=== PATIENT | female | born 1975 | race Caucasian/White ===

== ENCOUNTER 2018-06-21 17:35 | Emergency (ER) | payer OTHER ==
[2018-06-21 17:54] VITALS: RESP 18
--- NOTE | 2018-06-21 18:03 | ED ---
General Adult HPI - General Chief complaint: Vaginal Bleeding Stated complaint: eptopic Time Seen by Provider: 06/21/18 17:48 Source: patient, EMS, RN notes reviewed, old records reviewed (From [facility]) Mode of arrival: EMS Limitations: no limitations - History of Present Illness Initial comments: Patient is a pleasant 42-year-old female presenting to the emergency Department as a transfer from [facility]. Patient was transferred secondary to concern for ectopic . Patient is 2 para 1. Last was 9 years ago. was premature. Patient's last menstrual cycle was either 1 or 2 months ago. Patient had small amount of bleeding 1 month ago however her menstrual cycle has been irregular. Patient did have some spotting start 6 days ago. Patient took a test that was positive for days ago. This morning patient had increased bleeding and discomfort in the lower pelvic/lower back region. Patient states discomfort has improved is only mild at this time. Patient was seen there and had ultrasound done concerning for possible ectopic and was transferred here secondary to no POULTRY PATHOLOGIST available at her facility. HCG was reported at 11, 000. Patient states bleeding has slowed down and is only spotting at this time. Patient did have pelvic exam done there. - Related Data Home Medications Medication Instructions Recorded Confirmed Ergocalciferol (Vitamin D2) 50,000 unit PO TH 06/21/18 06/21/18 [Vitamin D2] diphenhydrAMINE [Benadryl] 100 mg PO HS 06/21/18 06/21/18 traMADol HCL [Ultram] 50 mg PO DAILY 06/21/18 06/21/18 Allergies Allergy/AdvReac Type Severity Reaction Status Date / Time No Known Allergies Allergy Verified 06/21/18 18:21 Review of Systems ROS Statement: Those systems with pertinent positive or pertinent negative responses have been documented in the HPI. ROS Other: All systems not noted in ROS Statement are negative. Constitutional: Denies: fever Eyes: Denies: eye pain ENT: Denies: ear pain Respiratory: Denies: cough Cardiovascular: Denies: chest pain Endocrine: Denies: fatigue Gastrointestinal: Denies: vomiting Genitourinary: Reports: abnormal menses. Denies: dysuria Musculoskeletal: Denies: arthralgia Skin: Denies: rash Neurological: Denies: weakness Past Medical History Past Medical History: Hypertension, Renal Disease Additional Past Medical History / Comment(s): stage 3 kidney disease History of Any Multi-Drug Resistant Organisms: None Reported Past Surgical History: Section Past Psychological History: No Psychological Hx Reported Smoking Status: Current every day smoker Past Alcohol Use History: None Reported Past Drug Use History: Marijuana General Exam Limitations: no limitations General appearance: alert, in no apparent distress Head exam: Present: atraumatic Eye exam: Present: normal appearance, PERRL ENT exam: Present: normal oropharynx Neck exam: Present: normal inspection Respiratory exam: Present: normal lung sounds bilaterally Cardiovascular Exam: Present: regular rate, normal rhythm GI/Abdominal exam: Present: soft. Absent: distended, tenderness Extremities exam: Present: normal inspection Neurological exam: Present: alert Psychiatric exam: Present: normal affect, normal mood Skin exam: Present: normal color Course Vital Signs 06/21/18 17:45 Temperature 97.7 F Pulse Rate 72 Respiratory 18 Rate Blood Pressure 135/92 O2 Sat by Pulse 98 Oximetry - Reevaluation(s) Reevaluation #1: 06/21/18 18:11 Case was discussed with on-call POULTRY PATHOLOGIST, Dr. Lizama. She does request additional information on ultrasound including size and if there is a fetus or stack or heartbeat seen. Radiologist has been paged. 06/21/18 18:33 Unable to get a hold of the radiologist read the report. Case was discussed with on-call radiologist who stated he would do an addendum to the report and then have [facility] fax the report to us. 06/21/18 19:09 Dr. West did make an addendum. He states the complex mass adjacent to the right ovary has a cystic component and measures 7 mm. No yolk sac or pole is seen. Mass overall is 13 mm. 06/21/18 19:38 Long discussion had again with Dr. Lizama including updated ultrasound report. She did also speak with the patient on the phone and had a long conversation. Decision has been made to discharge the patient and have her call tomorrow to the office. She will follow up with patient and have hCG followed. She does request repeat hCG done at this time. She is not convinced based on ultrasound report of ectopic . She states patient may have had a miscarriage already. Decision is made between patient and Dr. Lizama to discharge and follow -up tomorrow. Patient is aware. Dr. Lizama had considered providing methotrexate however has decided against this based on patient's kidney disease and fear of renal failure. Patient is made aware that ectopic has not completely ruled out at this point. She is advised to return for increased pain or weakness or bleeding or worsening symptoms. Disposition Clinical Impression: Threatened Disposition: HOME SELF-CARE Condition: Stable Instructions: Ectopic (DC), Threatened Miscarriage (ED) Additional Instructions: Please be aware that ectopic ( tubal) has not completely ruled out at this time. Return to emergency department for weakness, passing out, increased bleeding, increased pain, worsening or changing symptoms or any other concerns. Please follow-up with Dr. Lizama tomorrow at [phone], or the number provided below Is patient prescribed a controlled substance at d/c from ED?: No Referrals: Michelle Lizama MD [STAFF PHYSICIAN] - 1-2 days Nisha Escalera MD [STAFF PHYSICIAN] - 1-2 days Time of Disposition: 19:43
[2018-06-21 20:38] VITALS: BP 130/78; PULSE 74; TEMP 98
== END 2018-06-21 20:38 | disposition home or self-care (01) ==
LOC: EC 17:35
DX: O20.0 Threatened abortion (principal); O99.419 Diseases of the circulatory system complicating pregnancy, unspecified trimester; I12.9 Hypertensive chronic kidney disease with stage 1 through stage 4 chronic kidney disease, or unspecified chronic kidney disease; O99.89 Other specified diseases and conditions complicating pregnancy, childbirth and the puerperium; N18.3 Chronic kidney disease, stage 3 (moderate); O99.330 Smoking (tobacco) complicating pregnancy, unspecified trimester; F17.200 Nicotine dependence, unspecified, uncomplicated; Z79.891 Long term (current) use of opiate analgesic; Z79.899 Other long term (current) drug therapy; Z98.890 Other specified postprocedural states; Z3A.00 Weeks of gestation of pregnancy not specified
CPT/HCPCS: 36415; 84702; 99284

== ENCOUNTER 2018-06-22 13:52 | Day surgery (SDC) | payer OTHER ==
[2018-06-22] MEDS ORDERED: LIDOCAINE 1% 20 ML VIAL (10MG/ML) FOR IV START INTRADERMA ONE (15:12)
[2018-06-22] MEDS ORDERED: LACTATED RINGERS 1,000 ML IV ONE ×2 (15:13→16:45)
[2018-06-22] MEDS ORDERED: DEXAMETHASONE SOD PHOS (MDV) 100 MG/10 ML VIAL IVP ONE (15:40)
[2018-06-22] MEDS ORDERED: ONDANSETRON 4 MG/2 ML VIAL IVP ONE ×2 (15:40→18:01)
[2018-06-22] MEDS ORDERED: PROPOFOL 10 MG/ML 20 ML VIAL IV ONE (15:48)
[2018-06-22] MEDS ORDERED: LIDOCAINE 1% INJ 10MG/ML (20 ML MDV) ONE (15:48)
[2018-06-22] MEDS ORDERED: fentaNYL (PF) 50 MCG/ML 2 ML AMP ONE (15:48)
[2018-06-22] MEDS ORDERED: CISATRACURIUM 2 MG/ML 5 ML VIAL IV ONE (15:48)
[2018-06-22] MEDS ORDERED: HYDROmorphone (PF) 1 MG/ML ONE (15:48)
[2018-06-22] MEDS ORDERED: GLYCOPYRROLATE 0.2 MG/ML 2 ML VIAL ONE (15:48)
[2018-06-22] MEDS ORDERED: ACETAMINOPHEN IV (For NPO) 1,000 MG/100 ML VIAL ONE (15:48)
[2018-06-22] MEDS ORDERED: NEOSTIGMINE 1 MG/ML 10 ML VIAL ONE (15:48)
[2018-06-22] MEDS ORDERED: SUCCINYLCHOLINE CHLORIDE 100 MG/5 ML SYR IV ONE (15:48)
[2018-06-22] MEDS ORDERED: MIDAZOLAM 2 MG/2 ML VIAL ONE (15:48)
[2018-06-22] MEDS ORDERED: BUPIVACAIN-EPI 0.25%-1:200,000 30 ML VIAL SQ ONE (16:20)
--- NOTE | 2018-06-22 16:50 | P.PCN ---
Date of Procedure: 06/22/18 Preoperative Diagnosis: Right ectopic , undesired fertility, stage III renal disease Postoperative Diagnosis: Same, pathology pending Procedure(s) Performed: Diagnostic laparoscopy, Anesthesia: BHARAT Surgeon: Michelle Lizama Estimated Blood Loss (ml): 15 IV fluids (ml): 700 Urine output (ml): 100 Pathology: other (Right fallopian tube and ectopic) Condition: stable Disposition: PACU Operative Findings: Right tubal ectopic Description of Procedure: Patient is brought to the operating suite where a general anesthetic is administered without difficulty. She's placed in the dorsal lithotomy position. The cervix, vagina, abdomen are all prepped and draped in the usual sterile fashion. The appropriate timeout is performed to assure proper patient and procedural identification. Antibiotics are not deemed necessary. Speculum was placed into the vagina and the anterior lip of the cervix is grasped with an Allis clamp. A small acorn cannula is placed on the cervix and attached to the Allis clamp, the speculum is removed. The bladder is drained for approximately 100 mL of clear yellow urine. Attention is now drawn to the abdominal cavity. A small infraumbilical incision is made and the varies needle is placed and placement is checked with hanging drop technique. The abdomen is insufflated under low filling pressures of about 5 mmHg for a total of 4.0 L of CO2 gas. Veress needle was removed. Trocar is then placed and placement is noted to be atraumatic. A second incision is made suprapubically and a second trocar is placed. The patient is now positioned in Trendelenburg. The uterus is placed cephalad and laterally and the right fallopian tube is visualized. It is tucked behind the ovary. A grasper is used to gently elevate the tube with an ectopic was clearly visualized. Incision is made in the left lower quadrant 2 fingerbreadths medial and superior to the iliac spine. A third trocar is placed under direct visualization. The LigaSure is then used and the ectopic tissue and and entire right fallopian tube is removed with excellent hemostasis. The Endo Catch bag was then placed into the peritoneum, the right fallopian tube is placed into the bag and the entire specimen and bag are removed through the abdominal incision. The tube was sent to pathology for evaluation. Care is taken at all times to keep well away from the bowel and ureter. The ovary appears normal to inspection when completed. The stump is dry. At this time the Filshie clip is placed in the isthmic portion of the left fallopian tube with care to traverse the entire diameter of the tube into the mesal salpinx. Left ovary appears normal. No other uterine anomalies are identified. This time all areas are inspected and noted to be hemostatically intact. The CO2 gas was allowed to diffuse. The trochars are removed under direct visualization and the fascial defects are clean and dry. 4-0 undyed Monocryl is used in a subcuticular manner to close the 3 small incisions. They are injected with quarter percent Marcaine with epinephrine for a total of 10 mL to aid in postoperative analgesia. Firm it is given. Instrumentation is removed from the cervix. All sponge needle and enhancement counts are correct at the end of the procedure. Patient is brought back to the recovery room in very good condition with stable vital signs including 98% O2 saturation, pulse between 90 and 100, blood pressure 147/81.
[2018-06-22] MEDS ORDERED: MEPERIDINE 50 MG/ML SYRINGE IVP ONE (17:05)
[2018-06-22] MEDS ORDERED: MIDAZOLAM 2 MG/2 ML VIAL IVP ONE (17:10)
[2018-06-22 17:13] VITALS: TEMP 97.7
[2018-06-22] MEDS: HYDROmorphone 1 MG/ML 1 ML SYRINGE IVP ONE ×4 (17:22→17:39)
[2018-06-22 17:37] VITALS: RESP 16
[2018-06-22] MEDS ORDERED: fentaNYL (PF) 50 MCG/ML 2 ML AMP IVP ONE (17:50)
[2018-06-22] MEDS ORDERED: traMADol 50 MG TAB PO ONE (18:40)
[2018-06-22 18:55] VITALS: BP 118/62; PULSE 77
== END 2018-06-22 19:19 | disposition home or self-care (01) ==
LOC: OR 13:52
PROVIDERS: ATTEND Obstetrics & Gynecology
DX: O00.101 Right tubal pregnancy without intrauterine pregnancy (principal); Z30.2 Encounter for sterilization; N18.3 Chronic kidney disease, stage 3 (moderate); F17.210 Nicotine dependence, cigarettes, uncomplicated
CPT/HCPCS: 81025; 86900; 86901; 86850; 59151; J2250; J2710; J2175; J2405; J2001; J3010; J1170; J1100; J0131; J0330; J2704; 88305

== ENCOUNTER → 2018-06-22 | Outpatient (CLI) | payer OTHER ==
[2018-06-22 11:28] LABS: Basophils % (A) 0 %; Eosinophils # (A) 0.1 k/uL (0-0.7); Eosinophils % (A) 1 %; HCT 40.6 % (34.0-46.0); Lymphocytes # (A) 2.4 k/uL (1.0-4.8); Lymphocytes % (A) 22 %; MCH 29.7 pg (25.0-35.0); MCHC 32.1 g/dL (31.0-37.0); MCV 92.6 fL (80.0-100.0); Mean Platelet Volume 6.1; Monocytes # (A) 0.5 k/uL (0-1.0); Monocytes % (A) 4 %; Neutrophils % (A) 72 %; Platelet Count 383 k/uL (150-450); RBC 4.38 m/uL (3.80-5.40); RDW 12.6 % (11.5-15.5); WBC 11.1 k/uL (3.8-10.6)
== END | disposition home or self-care (01) ==
LOC: LABPAT 10:52
PROVIDERS: ATTEND Obstetrics & Gynecology
DX: Z01.812 Encounter for preprocedural laboratory examination (principal); O00.90 Unspecified ectopic pregnancy without intrauterine pregnancy; Z3A.00 Weeks of gestation of pregnancy not specified
CPT/HCPCS: 36415; 85025

== ENCOUNTER 2018-11-10 09:23 | Emergency (ER) | payer OTHER ==
[2018-11-10 09:27] VITALS: RESP 16
[2018-11-10] MEDS ORDERED: LIDOCAINE 1% INJ 10MG/ML (20 ML MDV) SQ ONE (09:45)
[2018-11-10] MEDS ORDERED: MORPHINE SULFATE 4 MG/ML SYRINGE IM STA (09:45)
--- NOTE | 2018-11-10 10:14 | ED ---
General Adult HPI - General Chief complaint: Skin/Abscess/Foreign Body Stated complaint: poss ingrown groin Time Seen by Provider: 11/10/18 09:29 Source: patient, RN notes reviewed, old records reviewed Mode of arrival: ambulatory Limitations: no limitations - History of Present Illness Initial comments: 32-year-old female presents for evaluation of pain and swelling on the left side of her vagina. She states she felt this initially began as an ingrown hair, progressed to more significant is pain and erythema. Denies fever or chills. No history diabetes. She has history of chronic kidney disease. - Related Data Home Medications Medication Instructions Recorded Confirmed Ergocalciferol (Vitamin D2) 50,000 unit PO SA 06/21/18 11/10/18 [Vitamin D2] traMADol HCL [Ultram] 50 mg PO DAILY 06/21/18 11/10/18 Previous Rx's Medication Instructions Recorded Sulfamethox-Tmp 800-160Mg [Bactrim 1 tab PO Q12HR #28 tab 11/10/18 DS 800-160 mg] Allergies Allergy/AdvReac Type Severity Reaction Status Date / Time No Known Allergies Allergy Verified 11/10/18 09:39 Review of Systems ROS Statement: Those systems with pertinent positive or pertinent negative responses have been documented in the HPI. ROS Other: All systems not noted in ROS Statement are negative. Past Medical History Past Medical History: Hypertension, Renal Disease Additional Past Medical History / Comment(s): stage 3 kidney disease History of Any Multi-Drug Resistant Organisms: None Reported Past Surgical History: Section Past Psychological History: No Psychological Hx Reported Smoking Status: Current every day smoker Past Alcohol Use History: None Reported Past Drug Use History: Marijuana General Exam Limitations: no limitations General appearance: alert, in no apparent distress Head exam: Present: atraumatic, normocephalic Eye exam: Present: normal appearance, PERRL ENT exam: Present: normal exam Neck exam: Present: normal inspection. Absent: tenderness, meningismus Respiratory exam: Present: normal lung sounds bilaterally. Absent: respiratory distress, wheezes Cardiovascular Exam: Present: regular rate, normal rhythm GI/Abdominal exam: Present: soft. Absent: distended, tenderness, guarding External exam: Present: swelling, other (Left Bartholin gland abscess, approximately 2 cm fluctuant abscess with surrounding cellulitis and induration) Course Vital Signs 11/10/18 09:25 Temperature 99.1 F Pulse Rate 120 H Respiratory 16 Rate Blood Pressure 117/81 O2 Sat by Pulse 98 Oximetry Procedures - Incision & Drainage Consent Obtained: verbal consent Site: vulva/vagina Anesthetic Used: lidocaine 1% Amount (mLs): 3 I&D Cleaning Method: Betadine Sterile Field Used?: No Scalpel Used: #11 Needle Aspiration Performed?: No Irrigation Performed?: Yes I&D Drainage Obtained: Pus Packing: Other (word cath) Culture Obtained?: No Patient Tolerated Procedure: well Medical Decision Making - Medical Decision Making 42-year-old female with Bartholin gland abscess. This is draining in the emergency department. Word catheter placed. Patient given [employer] follow up. Initiate on antibiotics. Disposition Clinical Impression: Bartholin's gland abscess Disposition: HOME SELF-CARE Condition: Good Instructions (If sedation given, give patient instructions): Abscess Incision and Drainage (ED), Bartholin Cyst (ED) Prescriptions: Sulfamethox-Tmp 800-160Mg [Bactrim DS 800-160 mg] 1 tab PO Q12HR #28 tab Is patient prescribed a controlled substance at d/c from ED?: No Referrals: None,Stated [Primary Care Provider] - 1-2 days Karen Mckeon DO [Doctor of Osteopathic Medicine] - 1-2 days Time of Disposition: 10:13
[2018-11-10 10:30] VITALS: BP 121/61; PULSE 101; TEMP 97.5
== END 2018-11-10 10:30 | disposition home or self-care (01) ==
LOC: EC 09:23
DX: N75.1 Abscess of Bartholin's gland (principal); I12.9 Hypertensive chronic kidney disease with stage 1 through stage 4 chronic kidney disease, or unspecified chronic kidney disease; N18.3 Chronic kidney disease, stage 3 (moderate); F17.200 Nicotine dependence, unspecified, uncomplicated; Z79.899 Other long term (current) drug therapy
CPT/HCPCS: 56420; 96372; 99283

== ENCOUNTER → 2022-04-03 | Outpatient (CLI) | payer BC, OTHER ==
--- NOTE | 2022-04-03 14:16 | CT ---
EXAMINATION TYPE: CT abdomen pelvis wo con CT DLP: 305.8 mGycm, Automated exposure control for dose reduction was used. DATE OF EXAM: 04/03/2022 1:28 PM COMPARISON: None. CLINICAL INDICATION:Female, 46 years old with history of R31.1 Micro hematuria, hydronephrosis N13.30 ; right side hydronephrosis TECHNIQUE: Standard CT of the abdomen and pelvis without IV or oral contrast. Lack of IV or oral co ntrast limits evaluation of solid and hollow organ viscera. Coronal and sagittal reformats were perfo rmed. FINDINGS: LOWER CHEST: Unremarkable ABDOMEN LIVER: Unremarkable noncontrast appearance. GALLBLADDER AND BILE DUCTS: Unremarkable. PANCREAS: Unremarkable noncontrast appearance. SPLEEN: Unremarkable noncontrast appearance. ADRENAL GLANDS: Unremarkable noncontrast appearance. KIDNEYS AND URETERS: No hydronephrosis or renal calculi. No ureteral calculi. Atrophy of the left kid bandar with scarring and cortical thinning of the superior pole the right kidney. Evaluation of the par enchyma is limited due to lack of IV contrast. PELVIS BLADDER: Incompletely distended but grossly unremarkable. REPRODUCTIVE: Unremarkable. ABDOMEN & PELVIS STOMACH AND BOWEL: Stomach and duodenum are unremarkable. Scattered colonic diverticulosis with evide nce for acute diverticulitis. The appendix is within normal limits. No evidence of bowel obstruction. PERITONEUM: No evidence of pneumoperitoneum or free fluid. VASCULATURE: No evidence of aortic aneurysm. Minimal atherosclerotic calcification of the aorta and i ts branches. Pelvic phleboliths. MUSCULOSKELETAL: No acute osseous abnormalities LYMPH NODES: No gross evidence for lymphadenopathy. SOFT TISSUE/ABDOMINAL WALL: Unremarkable IMPRESSION: 1. No hydronephrosis or renal calculi. 2. Atrophy of the left kidney with scarring and cortical thinning of the superior pole of the right k idney. 3. Colonic diverticulosis without evidence for acute diverticulitis.
== END | disposition home or self-care (01) ==
LOC: RADCTMAIN 13:08
PROVIDERS: ATTEND Urology
DX: K57.30 Diverticulosis of large intestine without perforation or abscess without bleeding (principal); N26.1 Atrophy of kidney (terminal); N28.89 Other specified disorders of kidney and ureter; R31.1 Benign essential microscopic hematuria
CPT/HCPCS: 74176